=== PATIENT | female | born 1990 ===

== ENCOUNTER 2018-08-09 14:16 | Emergency (ER) | payer MEDICAID ==
[~2018-08-09] VITALS: Ht 170.2 cm; Wt 75.0 kg
--- NOTE | 2018-08-09 14:54 | NUR ---
REPORT TO FRANK SANCHEZ
[2018-08-09 16:03] LABS: HEMATOCRIT 26.5 % (35.0-45.0); HEMOGLOBIN 7.9 g/dl (12.0-16.0); MEAN CORPUSCULAR HEMOGLOBIN 17.9 PG (27.0-31.0); MEAN CORPUSCULAR HGB CONC 29.7 g/dL (33.0-36.5); MEAN CORPUSCULAR VOLUME 60.3 FL (78-98); MEAN PLATELET VOLUME 6.7 FL (7.4-10.4); PLATELET COUNT 695 X10'3 (140-440); RED CELL DISTRIBUTION WIDTH 20.4 % (11.5-14.5); WHITE BLOOD COUNT 6.4 X10'3 (4.5-11.0)
[2018-08-09 16:21] LABS: ALANINE AMINOTRANSFERASE 32 U/L (12-78); ALBUMIN 3.7 G/DL (3.4-5.0); ALBUMIN/GLOBULIN RATIO 0.9 (1.1-1.5); ALKALINE PHOSPHATASE 85 IU/L (46-116); ANION GAP 10 (8-16); ASPARTATE AMINO TRANSFERASE 24 U/L (10-37); BILIRUBIN,TOTAL 0.2 MG/DL (0.1-1.0); BLOOD UREA NITROGEN 10 MG/DL (7-18); BUN/CREATININE RATIO 13.3 (6.6-38.0); CALCIUM 9.2 MG/DL (8.5-10.1); CHLORIDE 103 MMOL/L (99-107); CREATININE 0.75 MG/DL (0.40-0.90); ETHANOL < 0.010 GM/DL (0.0-0.010); GLUCOSE 92 MG/DL (70-104); SODIUM 141 MMOL/L (135-145); TOTAL CARBON DIOXIDE 28.4 MMOL/L (24-32); TOTAL PROTEIN 7.7 G/DL (6.4-8.2); eGFR > 90 ML/MIN
[2018-08-09 17:06] LABS: ANISOCYTOSIS 2+; MICROCYTOSIS 2+; PLATELET ESTIMATE INCREASED; TOTAL CELLS COUNTED 100
[2018-08-09 17:09] LABS: ELLIPTOCYTES 1+
[2018-08-09 17:12] LABS: HYPOCHROMASIA 2+
--- NOTE | 2018-08-09 17:41 | NUR ---
Patient brought over via ambulatory from Bed 14 to Bed 22. Presents as actively psychotic.
[2018-08-09 17:47] LABS: URINE HCG NEGATIVE (NEG)
[2018-08-09 17:50] LABS: URINE AMPHETAMINE SCREEN NEGATIVE (Neg); URINE BARBITUATE SCREEN NEGATIVE (Neg); URINE BENZODIAZEPINES SCREEN NEGATIVE (Neg); URINE CANNABINOID SCREEN POSITIVE (Neg); URINE COCAINE SCREEN NEGATIVE (Neg); URINE METHADONE SCREEN NEGATIVE (Neg); URINE OPIATE SCREEN NEGATIVE (Neg); URINE PHENCYCLIDINE SCREEN NEGATIVE (Neg)
--- NOTE | 2018-08-09 18:10 | NUR ---
did not rcv report from previous RN
[2018-08-09] MEDS ORDERED: haloperidol 1mg tablet PO SCH (18:15)
[2018-08-09] MEDS ORDERED: haloperidol 1mg tablet PO ONE (18:15)
--- NOTE | 2018-08-09 18:31 | NUR ---
telepsych initiated, cart one in place
--- NOTE | 2018-08-09 18:36 | NUR ---
spoke to pt re medications she states that she takes 600 of lorazepam, but is allergic to Ativan, makes her heart stop
--- NOTE | 2018-08-09 19:02 | NUR ---
pt is in bed, has eaten one of the homeless sack lunch and her dinner, she is very verbal with one of the satff members, confrontational, she is currently talking to herself
[2018-08-09 19:13] LABS: % IRON SATURATION 2 % (11-46); IRON 11 UG/DL (49-151); TOTAL IRON BINDING CAPACITY 494 UG/DL (259-388)
--- NOTE | 2018-08-09 19:30 | NUR ---
spoke with telemed md, he will talk with the pt and get back to me with suggestions
[2018-08-09] MEDS ORDERED: LORazepam 1 MG tablet PO ONE (19:35)
[2018-08-09] MEDS ORDERED: haloperidol 5mg tablet PO ONE (19:35)
--- NOTE | 2018-08-09 19:50 | NUR ---
pt spoke to telepsych md, she then covered her head with a blanket and has been quiet, I have not given additional medication for agitation as she is now calm
[2018-08-09] MEDS ORDERED: NO HOME MEDS (20:12)
[2018-08-09] MEDS ORDERED: LORazepam 2 mg/ml vial IM ONE (20:45)
[2018-08-09] MEDS ORDERED: haloperidol lactate 5mg/ml inj IM ONE (20:45)
[2018-08-09] MEDS ORDERED: nicotine 14mg patch - 24hr TD ONE (20:55)
--- NOTE | 2018-08-09 22:00 | NUR ---
Patient is hyper-verbal, yelling, and will not follow instructions. Telepsychiatry recommends haldol and ativan PRN. Patient was refusing PO medications for previous RN. Medications offered to patient and she chose to take them PO vs IM.
--- NOTE | 2018-08-09 22:10 | NUR ---
Habitrol patch remains in place until scheduled for tomorrow.
--- NOTE | 2018-08-09 23:06 | NUR ---
Patient has quieted after her medications, but she continues to rock, shake her arms in the air, and speak/respond to herself. Will attempt to get additional medication for the patient shortly.
--- NOTE | 2018-08-10 00:32 | NUR ---
Patient now sleeping comfortably.
--- NOTE | 2018-08-10 02:02 | NUR ---
No change, patient continues to sleep.
--- NOTE | 2018-08-10 03:23 | NUR ---
Patient sleeping supine with even unlabored breathing.
--- NOTE | 2018-08-10 04:30 | NUR ---
Patient continues to sleep.
--- NOTE | 2018-08-10 07:10 | NUR ---
PT RESTING ON BACK RR EQUAL AND UNLABORED
--- NOTE | 2018-08-10 08:31 | NUR ---
PT AWAKE FOR BREAKFAST AND NOW BACK TO RESTING EYES CLOSED
--- NOTE | 2018-08-10 09:47 | NUR ---
PT RESTING ON RIGHT SIDE RR EQUAL AND UNLABORED
--- NOTE | 2018-08-10 10:33 | NUR ---
PT RESTING ON BACK RR EQUAL AND UNLABORED
--- NOTE | 2018-08-10 12:08 | NUR ---
PT UP TO BR
[2018-08-10 14:47] LABS: CLARITY,URINE SLIGHTLY CLOUDY (Clear); COLOR,URINE YELLOW (Yellow); GLUCOSE, URINE NEGATIVE (Neg); KETONES,URINE NEGATIVE (Neg); LEUKOCYTE ESTERASE ,URINE MODERATE (Neg); NITRITES, URINE NEGATIVE (Neg); OCCULT BLOOD,URINE NEGATIVE (Neg); PH,URINE 7.5 (4.8-8.0); PROTEIN,URINE NEGATIVE (Neg); UROBILINOGEN,URINE 0.2 E.U/dL (0.2-1.0)
[2018-08-10 14:49] LABS: UA COLLECTION TYPE CLN CATCH MIDSTREAM
[2018-08-10 14:53] LABS: BACTERIA,URINE FEW /HPF (Neg); MUCUS STRANDS NONE SEEN /LPF (Neg); RBC,URINE NONE SEEN /HPF (0-2); SQUAMOUS EPITHELIAL CELL,UR MODERATE /LPF (FEW); WBC,URINE 0-4 /HPF (0-4)
--- NOTE | 2018-08-10 15:29 | NUR ---
PT CONTINUES RESTING ON BACK RR EQUAL AND UNLABORED
--- NOTE | 2018-08-10 16:58 | NUR ---
PT UP TO BR AND BACK TO BED. RESTING WITH EYES CLOSED RR EQUAL AND UNLABORED
--- NOTE | 2018-08-10 19:36 | NUR ---
Pt denies S/H/I at this time. She is AOX4. Pt able to verbalized why she is in this facility and recalls being at hotel, saying "Kavya and I have talked about all that. It's being handled." Pt identified Kavya as "someone who helps care for me." Pt denies audio/visual hallucinations at this time. Affect and mood WNL. Staff interaction has been cooperative and appropriate.
--- NOTE | 2018-08-10 22:43 | NUR ---
Pt asleep on back. RR 13, even and unlabored. No apparent distress at this time.
--- NOTE | 2018-08-11 01:09 | NUR ---
Pt asleep on back. RR 12, even and unlabored. No apparent distress at this time.
--- NOTE | 2018-08-11 04:02 | NUR ---
Pt asleep left side. RR 12, even and unlabored. No apparent distress at this time.
--- NOTE | 2018-08-11 07:52 | NUR ---
Recieved client in bed sleeping w/o distress.
--- NOTE | 2018-08-11 09:00 | NUR ---
Patient in bed coloring. Making angry statements to staff. Delusions that staff are her enemy and overall becoming hostile. Able to calm after talking with her about her children. Became tearful about children.
[2018-08-11] MEDS ORDERED: LORazepam 1 MG tablet PO ONE (10:35)
[2018-08-11] MEDS ORDERED: nicotine 14mg patch - 24hr TD ONE (10:35)
[2018-08-11] MEDS ORDERED: OLANZapine 5mg rapidly disint. tablet PO ONE (10:35)
--- NOTE | 2018-08-11 11:00 | NUR ---
Consulted with Dr Coronado r/t escalating hostility and pt wanting to smoke. Reports smoking [address] Coronado ordered Zyprexa, Ativan and nicotene patch. Pt took meds.
--- NOTE | 2018-08-11 13:00 | NUR ---
Pt sleeping w/o distress.
--- NOTE | 2018-08-11 15:00 | NUR ---
Pt awoke and used the bathroom and ate all of lunch. She returned to bed to sleep.
--- NOTE | 2018-08-11 17:00 | NUR ---
Pt is asleep in bed w/o/distress.
--- NOTE | 2018-08-11 17:15 | NUR ---
Spoke with RN at [facility] and gave report for possible acceptance.
[2018-08-11 17:40] VITALS: BP 111/63
--- NOTE | 2018-08-11 19:29 | NUR ---
pt placed in [facility], arrangements have been made for transfer tonight
== END 2018-08-11 20:00 ==
LOC: ER 14:17
DX: F29 Unspecified psychosis not due to a substance or known physiological condition (principal); D50.9 Iron deficiency anemia, unspecified; F41.9 Anxiety disorder, unspecified; F17.210 Nicotine dependence, cigarettes, uncomplicated; F15.90 Other stimulant use, unspecified, uncomplicated
CPT/HCPCS: 36415; 80053; 80305; 80320; 81001; 81025; 83540; 83550; 84443; 85025; 87088; 99285; J2060